=== PATIENT | female | born 1990 | race African-American/Black ===

== ENCOUNTER 2022-01-20 18:32 | Emergency (ER) | payer MEDICAID ==
[~2022-01-20] VITALS: Ht 170.2 cm; Wt 85.0 kg
[~2022-01-20 18:32] MED LIST: PRENATAL VITS
[2022-01-20] MEDS ORDERED: METHOCARBAMOL 750MG TABLET PO SCH (18:45)
[2022-01-20] MEDS ORDERED: LIDOCAINE 5% PATCH TOP SCH (18:45)
[2022-01-20] MEDS ORDERED: KETOROLAC 60MG/2ML VIAL IM ONE (18:45)
[2022-01-20 19:04] VITALS: BP 138/72
[2022-01-20] MEDS ORDERED: HYDROCODONE/ACETAMINOPHEN 5/325MG TABLET PO PRN (21:00)
[2022-01-20] MEDS ORDERED: METH-653 MT (21:11)
== END 2022-01-20 22:43 | disposition home or self-care (01) ==
LOC: ER 18:32
DX: S39.012A Strain of muscle, fascia and tendon of lower back, initial encounter (principal); X58.XXXA Exposure to other specified factors, initial encounter; Y93.89 Activity, other specified; Y92.89 Other specified places as the place of occurrence of the external cause; Y99.8 Other external cause status; J45.909 Unspecified asthma, uncomplicated
CPT/HCPCS: 72100; 96372; 99284; J1885; Z7610